=== PATIENT | female | born 1995 | race Caucasian/White ===

== ENCOUNTER 2025-04-06 12:24 | Inpatient (IN) | payer BC ==
[2025-04-06] MEDS ORDERED: Ondansetron 4 MG/2 ML SDV IVPUSH PRN (19:13)
[2025-04-06] MEDS ORDERED: Nalbuphine 10 MG/1 ML Vial IVPUSH PRN (19:13)
[2025-04-06] MEDS ORDERED: Oxytocin/0.9 % Sodium Chloride 30 UNIT/500 ML BAG IV SCH ×2 (19:15)
[2025-04-06 19:36] LABS: BASOPHILS ABSOLUTE AUTO 0.0 K/mm3 (0.0-0.2); BASOPHILS PERCENT AUTO 0.2 % (0.0-1.0); EOSINOPHILS ABSOLUTE AUTO 0.1 K/mm3 (0.0-0.4); EOSINOPHILS PERCENT AUTO 0.6 % (0.0-6.0); IMMATURE GRAN ABSOLUTE AUTO 0.04 K/mm3 (0.00-0.05); IMMATURE GRAN PERCENT AUTO 0.5 % (0.0-0.4); LYMPHOCYTES ABSOLUTE AUTO 2.5 K/mm3 (1.0-4.8); LYMPHOCYTES PERCENT AUTO 29.8 % (24.0-44.0); MEAN PLATELET VOLUME 10.6 fl (9.4-12.3); MONOCYTES ABSOLUTE AUTO 0.6 K/mm3 (0.0-0.8); MONOCYTES PERCENT AUTO 7.5 % (0.0-8.0); NEUTROPHILS ABSOLUTE AUTO 5.2 K/mm3 (1.8-7.7); NEUTROPHILS PERCENT AUTO 61.4 % (41.0-71.0); NRBC ABSOLUTE 0.00 (0.00-0.02); NRBC PERCENT 0.0 % (0.0-0.2); PLATELET COUNT,PLT 268 K/mm3 (150-400); RED BLOOD CELL COUNT 3.90 M/mm3 (4.10-5.30); WHITE BLOOD CELL COUNT,WBC 8.52 K/mm3 (3.9-11.3)
[2025-04-06] MEDS: Misoprostol 25 MCG (1/4 of 100 MCG) Tab VAG SCH (20:05)
[2025-04-07] MEDS: Lactated Ringers 1,000 ML IV SCH (04:09)
[2025-04-07] MEDS ORDERED: diphenhydrAMINE 50 MG/ML SDV IVPUSH PRN ×3 (07:13→14:06)
[2025-04-07] MEDS: Terbutaline 1 MG/ML SDV SUBCUT ONE (09:17)
[2025-04-07] MEDS: Bupivacaine/fentaNYL/NS 100 ML Bag EPIDUR PRN (09:20)
[2025-04-07] MEDS: fentaNYL 100 MCG/2 ML SDV EPIDUR PRN (09:20)
[2025-04-07] MEDS: ePHEDrine 50 MG/ML SDV IVPUSH PRN (11:13)
[2025-04-07] MEDS: Citric Acid/Sodium Citrate Solution 30 ML Cup PO ONE (12:01)
[2025-04-07] MEDS ORDERED: Bupivacaine 0.75%/D5W 2 ML Amp ONE (12:17)
[2025-04-07] MEDS ORDERED: Phenylephrine 1% 10 MG/ML SDV ONE (12:17)
[2025-04-07] MEDS ORDERED: Lactated Ringers 1,000 ML ONE (12:18)
[2025-04-07] MEDS ORDERED: Ketorolac 30 MG/ML SDV ONE (12:36)
[2025-04-07] MEDS ORDERED: Ondansetron 4 MG/2 ML SDV IVPUSH PRN ×2 (12:59)
[2025-04-07] MEDS ORDERED: fentaNYL 100 MCG/2 ML SDV IVPUSH PRN ×2 (12:59)
[2025-04-07] MEDS ORDERED: Naloxone 0.4 MG/ML SDV IVPUSH PRN (14:06)
[2025-04-07] MEDS ORDERED: Ondansetron 4 MG/2 ML SDV IV PRN (14:06)
[2025-04-07] MEDS ORDERED: Sodium Chloride 0.9% 10 ML Syringe FLUSH PRN (14:06)
[2025-04-07] MEDS ORDERED: ePHEDrine 50 MG/ML SDV IVPUSH PRN (14:06)
[2025-04-07] MEDS: Ketorolac 30 MG/ML SDV IVPUSH SCH (19:22)
[2025-04-08 05:50] LABS: MEAN PLATELET VOLUME 10.9 fl (9.4-12.3); NRBC ABSOLUTE 0.00 (0.00-0.02); NRBC PERCENT 0.0 % (0.0-0.2); PLATELET COUNT,PLT 242 K/mm3 (150-400); RED BLOOD CELL COUNT 3.46 M/mm3 (4.10-5.30); WHITE BLOOD CELL COUNT,WBC 10.46 K/mm3 (3.9-11.3)
== END 2025-04-09 18:35 | disposition home or self-care (01) | DRG 540 ==
LOC: JD.OB 12:24 → OBSVTOIN 04-07 12:24 → JD.OB 04-07 12:25
PROVIDERS: ADMIT Obstetrics & Gynecology; ATTEND Obstetrics & Gynecology
PROC: 4A1HXCZ Monitoring of Products of Conception, Cardiac Rate, External Approach (ICD-10-PCS; 2025-04-07)
PROC: 0U7C7DJ Dilation of Cervix with Intraluminal Device, Temporary, Via Natural or Artificial Opening (ICD-10-PCS; 2025-04-07)
PROC: 3E0DXGC Introduction of Other Therapeutic Substance into Mouth and Pharynx, External Approach (ICD-10-PCS; 2025-04-07)
PROC: 10D00Z1 Extraction of Products of Conception, Low, Open Approach (ICD-10-PCS; principal; 2025-04-07 12:30)
DX: O48.0 Post-term pregnancy (principal); Z3A.40 40 weeks gestation of pregnancy; Z37.0 Single live birth; O99.214 Obesity complicating childbirth; O99.62 Diseases of the digestive system complicating childbirth; K21.9 Gastro-esophageal reflux disease without esophagitis; O76 Abnormality in fetal heart rate and rhythm complicating labor and delivery; O32.8XX0 Maternal care for other malpresentation of fetus, not applicable or unspecified; O69.81X0 Labor and delivery complicated by cord around neck, without compression, not applicable or unspecified
CPT/HCPCS: 01967; 01968; 36415; 59025; 85025; 85027; 86592; 86850; 86900; 86901; 99140; A9270-GY; C1726; J0456; J0690; J1885; J2371; J2765; J3010; J3105; J3490; J7050; J7120; J7121